=== PATIENT | male | born 1960 | race Caucasian/White ===

== ENCOUNTER 2018-10-19 11:58 | Inpatient (IN) ==
[2018-10-19] MEDS ORDERED: *HR* LORazepam 0.5 MG TABLET PO PRN (18:23)
[2018-10-19] MEDS ORDERED: Ondansetron ODT 4 MG TAB.RAPDIS PO PRN (18:23)
[2018-10-19] MEDS ORDERED: *HR* OxyCODONE/APAP 5/325 TABLET PO PRN ×2 (18:23→19:04)
[2018-10-20] MEDS: *HR* OxyCODONE/APAP 5/325 TABLET PO PRN ×4 (00:51→18:24)
[2018-10-20 07:12] LABS: Basophils % 0.3 %; Eosinophils # 0.4 K/mcL (0.0-0.6); Eosinophils % 3.5 %; Hematocrit 30.7 % (37.5-50.1); Hemoglobin 10.2 g/dL (12.9-16.9); Immature Granulocytes % 0.6 % (0-4); Lymphocytes % 7.9 %; Mean Corpuscular HGB Conc 33.2 g/dL (31.6-35.5); Mean Corpuscular Hemoglobin 28.7 pg (28.0-33.3); Mean Corpuscular Volume 86.5 fL (83.0-100.0); Mean Platelet Volume 10.3 fL (9.4-12.4); Monocytes # 1.1 K/mcL (0.0-1.3); Monocytes % 8.8 %; Neutrophils # 9.5 K/mcL (1.6-8.9); Platelet Count 211 K/mcL (140-400); Red Blood Count 3.55 M/mcL (4.19-5.50); Red Cell Distribution Width 13.3 % (11.5-14.5); Segmented Neutrophils % 78.9 %
[2018-10-20 07:30] LABS: INR 1.4
[2018-10-20 07:33] LABS: Activated Partial Thrombo Time 29.1 Seconds (26.0-36.0)
[2018-10-20 07:38] LABS: Alanine Aminotransferase 21 Units/L (7-52); Albumin 3.2 g/dL (3.5-5.7); Albumin/Globulin Ratio 1.1 (1.1-2.2); Alkaline Phosphatase 40 Units/L (34-104); Aspartate Amino Transferase 23 Units/L (13-39); BUN/Creatinine Ratio 22 (6-26); Bilirubin,Total 0.9 mg/dL (0.3-1.0); Blood Urea Nitrogen 22 mg/dL (8-23); Calcium 8.6 mg/dL (8.6-10.3); Carbon Dioxide 29 mEq/L (23-29); Chloride 98 mEq/L (98-107); Globulin 2.9 g/dL (2.4-3.5); Glucose 113 mg/dL (70-105); Magnesium 2.1 mg/dL (1.6-2.6); Osmolality,Calculated 278 (280-300); Potassium 3.8 mEq/L (3.5-5.1); Sodium 132 mEq/L (136-145); Total Protein 6.1 g/dL (6.4-8.9); eGFR For African Americans > 60 (> 60); eGFR For Non-African Americans > 60 (> 60)
[2018-10-20] MEDS: *HR* Rivaroxaban 10 MG TABLET PO SCH (08:36)
--- NOTE | 2018-10-20 10:42 | Internal Med History&Physical ---
Date of Encounter: 10/20/18 Time of Encounter: 10:40 Assessment and Plan (1) Status post total bilateral knee replacement Current visit: Yes Status: Acute PT and OT to eval and treat. Assist with ADLs as necessary. Continue Flexeril and Percocet for pain control and ice. Follow up with ortho as scheduled. (2) Rheumatoid arthritis Current visit: Yes Status: Acute Takes prednisone intermittently Qualifiers: Rheumatoid arthritis location: unspecified site Rheumatoid factor presence: unspecified presence Qualified Code(s): M06.9 - Rheumatoid arthritis, unspecified (3) Hypertension Current visit: Yes Status: Acute Controlled with current medication. Monitor blood pressure. Qualifiers: Hypertension type: essential hypertension Qualified Code(s): I10 - Essential (primary) hypertension Internal Medicine - H&P: HPI Admitted From: Hospital to Hospital Transfer Plans for Post Hospital Care: Home History of present illness: Mr. Vicente is a 58 year old male admitted to rehab unit status post bilateral total knee replacements. Surgery was performed [facility]. Surgery day was . Past medical history includes rheumatoid arthritis, osteoarthritis of both knees, hypertension. Patient was independent with ADLs prior to admission. Pain is controlled with Flexeril and Percocet. Applying ice to knees. Denies fever, chills, nausea vomiting or diarrhea. Denies shortness of breath or chest pain. Maintaining appetite and hydration. Transferred with mod assist with therapy. Past Med Surg Social Fam HX - Past Medical History Medical history: GERD, hyperlipidemia, hypertension, RA Psychiatric history: no psych history - Past Surgical History Additional surgical history: tiffani knee,back - Social History Smoking Status: Never smoker Smokeless Tobacco Status: No Alcohol use: none Drug use: none - Family History Father Adopted: No Living Status: Still Living Internal Medicine - H&P: Meds Aspirin [Lo-Dose Aspirin EC] 81 mg PO DAILY 09/21/16 [History] HYDROcodone/Acet 7.5/325 mg [[place] 7.5-325 mg] 1 tab PO Q6H PRN #15 tablet 09/21/16 [Rx] Ibuprofen [Motrin] 600 mg PO DAILY PRN 09/21/16 [History] LORazepam [Ativan] 0.5 mg PO HS PRN 09/21/16 [History] Losartan/Hydrochlorothiazide [Hyzaar 100-25 Tablet] 1 each PO DAILY 09/21/16 [History] Zolpidem [Ambien] 10 mg PO HS PRN 09/21/16 [History] Cyclobenzaprine 10 mg PO TID PRN 10/19/18 [History] Docusate [Colace] 10 mg PO BID 10/19/18 [History] Losartan 100 mg PO DAILY 10/19/18 [History] Percocet 5-325 mg Tablet 5 - 325 mg PO Q4HR PRN MDD 3 DAYS 10/19/18 [History] Rivaroxaban [Xarelto] 10 mg PO DAILY 10/19/18 [History] Tamsulosin [Flomax] 0.4 mg PO DAILY 10/19/18 [History] Zofran ODT 4 mg PO Q6HR PRN 10/19/18 [History] Allergy/AdvReac Type Severity Reaction Status Date / Time Penicillins Allergy Anaphylaxis Verified 09/21/16 08:07 All Systems PM: A 10-system review of systems was performed and is negative for pertinent findings except as documented above in the HPI. - Constitutional Constitutional: no chills, no fever(s), no night sweats - EENT Eyes: no change in vision, no discharge, no pain, no photophobia Ears: no ear discharge, no ear pain, no tinnitus Nose, mouth and throat: no dysphagia, no nasal discharge, no neck pain, no sore throat - Cardiovascular Cardiovascular ROS IM: no chest pain, no diaphoresis, no dyspnea, no lightheadedness, no palpitations, no syncope - Respiratory Respiratory: no cough, no dyspnea, no wheezing, no excessive phlegm production - Gastrointestinal Gastrointestinal: no abdominal pain, no diarrhea, no hematemesis, no hematochezia, no melena, no nausea, no vomiting - Musculoskeletal Musculoskeletal ROS IM: no numbness, no tingling - Integumentary Integumentary IM: no rash, no unusual bruising - Neurological Neurological ROS: no confusion, no convulsions, no focal weakness, no numbness, no tingling, no tremor(s) - Hematologic/Lymphatic Hematologic/Lymphatic: no easy bruising - Constitutional Vitals: Temp Pulse Resp BP Pulse Ox 97.8 F 107 18 124/72 94 10/20/18 07:13 10/20/18 07:13 10/20/18 07:13 10/20/18 07:13 10/20/18 07:13 General appearance: Present: cooperative, A&O X 3, morbidly obese, pleasant, answers questions appropriately - Head Head exam: Present: atraumatic, normocephalic - Eye Eye exam: Present: PERRL, conjuntiva pink, sclera anicteric Pupils: Present: PERRL - Neck Neck exam general surgery: Present: supple, trachea midline. Absent: lymphadenopathy - Respiratory Respiratory exam: Present: CTAB. Absent: accessory muscle use, rales, rhonchi, wheezes - Cardiovascular Cardiovascular exam: Present: RRR, +S1, +S2. Absent: diastolic murmur, gallop, rubs, systolic murmur - GI/Abdominal GI/Abdominal exam: Present: normal bowel sounds, soft, no peritoneal signs. Absent: distended, tenderness - Extremities Exam Extremities exam: Present: warm, radial pulses palpable and symmetrical. Absent: calf tenderness, cyanotic, pedal edema - Incison Comments: Bilateral knee incisions dressings dry and intact. Surrounding edema present. No sign of infection. - Neurological Exam Neurological exam: Present: CN II-XII intact, oriented X3, no focal deficits. Absent: pronater drift, facial droop, speech deficit - Skin Skin exam: Present: dry, intact Internal Med - H&P Results - Labs CBC & Chem 7: 10/20/18 06:51 10/20/18 06:51 Labs: Short CBC 10/20/18 Range/Units 06:51 WBC 12.0 H (4.3-11.1) K/mcL Hgb 10.2 L (12.9-16.9) g/dL Hct 30.7 L (37.5-50.1) % Plt Count 211 (140-400) K/mcL Neutrophils # 9.5 H (1.6-8.9) K/mcL BMP 10/20/18 06:51 Sodium 132 L Potassium 3.8 Chloride 98 Carbon Dioxide 29 BUN 22 Creatinine 0.98 Glucose 113 H Calcium 8.6 Liver Function 10/20/18 Range/Units 06:51 Total Bilirubin 0.9 (0.3-1.0) mg/dL AST 23 (13-39) Units/L ALT 21 (7-52) Units/L Alkaline Phosphatase 40 (34-104) Units/L Albumin 3.2 L (3.5-5.7) g/dL
[2018-10-20] MEDS: predniSONE 10 MG TABLET PO SCH (12:10)
[2018-10-21] MEDS: *HR* OxyCODONE/APAP 5/325 TABLET PO PRN ×5 (00:09→21:36)
[2018-10-21] MEDS: predniSONE 10 MG TABLET PO SCH (08:16)
[2018-10-21] MEDS: *HR* Rivaroxaban 10 MG TABLET PO SCH (08:16)
--- NOTE | 2018-10-21 10:31 | Internal Med Progress Note ---
Date of Encounter: 10/21/18 Time of Encounter: 10:27 - Assessment and plan (1) Status post total bilateral knee replacement Current Visit: Yes Status: Acute Assessment and plan: Patient surgical incision dressing to bilateral knees remained dry and intact. Moderate amount of edema to bilateral knees, but no ecchymosis or erythema noted. Patient states moderate pain to the knees which is tolerable with current medications. Patient states that he has limitations to his therapy due to his RA pain to his hips and back. Will evaluate patient's cortical steroids. We will continue with current pain medication and continue with physical therapy. (2) Rheumatoid arthritis Current Visit: Yes Status: Acute Assessment and plan: Patient with complaints of generalized discomforts which has limited his mobility during physical therapy. We will reevaluate patient's cortical steroids at this time. We will continue with current medications in place Qualifiers: Rheumatoid arthritis location: unspecified site Rheumatoid factor presence: unspecified presence Qualified Code(s): M06.9 - Rheumatoid arthritis, unspecified (3) Hypertension Current Visit: Yes Status: Acute Assessment and plan: Vital signs have been stable during her stay. We will continue with current medications. Qualifiers: Hypertension type: essential hypertension Qualified Code(s): I10 - Essential (primary) hypertension - Time Spent With Patient less than 15 minutes - Subjective Interval history: Patient appears relaxed at present, but states that he has had a moderate amount of generalized pain to include his bilateral knees. Patient states that his pain medication has been effective in decreasing the pain but that his generalized joint discomforts are related to his rheumatoid arthritis. Patient denies any other issues. States that therapy has been progressing well except for limitations from his pain - Constitutional Vitals: Temp Pulse Resp BP Pulse Ox 98.9 F 102 14 112/67 93 10/20/18 19:59 10/20/18 22:46 10/20/18 19:59 10/20/18 22:46 10/20/18 19:59 General appearance: Present: cooperative, A&O X 3, morbidly obese, pleasant, answers questions appropriately - Head Head exam: Present: atraumatic, normocephalic - Eye Eye exam: Present: PERRL, conjuntiva pink, sclera anicteric Pupils: Present: PERRL - Neck Neck exam general surgery: Present: supple, trachea midline. Absent: lymphadenopathy - Respiratory Respiratory exam: Present: decreased breath sounds, CTAB. Absent: accessory muscle use, rales, rhonchi, wheezes - Cardiovascular Cardiovascular exam: Present: RRR, +S1, +S2. Absent: diastolic murmur, gallop, rubs, systolic murmur - GI/Abdominal GI/Abdominal exam: Present: normal bowel sounds, soft, no peritoneal signs. Absent: distended, tenderness - Extremities Exam Extremities exam: Present: warm, radial pulses palpable and symmetrical. Absent: calf tenderness, cyanotic, pedal edema Additional comments: Patient with midline surgical dressings to bilateral knees which appear dry and intact. Bilateral knees with slight edema, but no ecchymosis. Patient using continuous icing while in bed - Neurological Exam Neurological exam: Present: CN II-XII intact, oriented X3, no focal deficits. Absent: pronater drift, facial droop, speech deficit - Skin Skin exam: Present: dry, intact Internal Medicine: Result - Labs CBC & Chem 7: 10/20/18 06:51 10/20/18 06:51 - ABG Interpretation ABG results: PT/INR, D-dimer PT 16.0 Seconds (9.4-12.1) H 10/20/18 06:51 Consult Discharge Plan - Plan Referrals: Guillermina Mazariegos BUILDING MAINTENANCE TECHNICIAN [Primary Care Provider] - (Post-op f/u appt with Elgin Mota MD on Nov 09 at 11:00. )
[2018-10-21] MEDS: PrednisoLONE Oral Soln 15 MG/5 ML UDC PO SCH (12:16)
[2018-10-22] MEDS: *HR* OxyCODONE/APAP 5/325 TABLET PO PRN ×4 (06:11→20:32)
[2018-10-22] MEDS: *HR* Rivaroxaban 10 MG TABLET PO SCH (08:21)
[2018-10-22] MEDS: PrednisoLONE Oral Soln 15 MG/5 ML UDC PO SCH (08:21)
[2018-10-22] MEDS ORDERED: hydrALAZINE 10 MG TABLET PO PRN (13:09)
--- NOTE | 2018-10-22 13:20 | Internal Med Progress Note ---
Date of Encounter: 10/23/18 Time of Encounter: 13:50 - Subjective Interval history: - Assessment and plan (1) Status post total bilateral knee replacement Current Visit: Yes Status: Acute Assessment and plan: Patient surgical incision dressing to bilateral knees remained dry and intact. He is anxious as he notes he has had mrsa in past. He is afebrile and he has no change in post op areas. PT requesting antibiotics for prevention. Advised pt that is usually done around time of surgery but not in his rehab recovery phase. Pt assured we will monitor his clinical status. Patient states he is not happy he still has pain to the knees . He says when he did pt he noted he did a lot yesterday and now has more pain. Patient states that he has limitations to his therapy due to his RA pain to his hips and back. Will evaluate patient's cortical steroids. We will continue with current pain medication and continue with physical therapy. Pt wants more narcotic. Advised will not be in best interest at this time. Discussed option. Pt elects to add Toradol q 8 hr for 3 days. He has good renal function and has controlled htn. (2) Rheumatoid arthritis Current Visit: Yes Status: Acute Assessment and plan: Patient with complaints of generalized discomforts which has limited his mobility during physical therapy. He says he has had RA for years. He says he did not tolerate disease modifying agents except says he did ok on plaquinil He says not on it at home due to cost. He would like to use it here. Will start. Qualifiers: Rheumatoid arthritis location: unspecified site Rheumatoid factor presence: unspecified presence Qualified Code(s): M06.9 - Rheumatoid arthritis, unspecified (3) Hypertension Current Visit: Yes Status: Acute Assessment and plan: Vital signs have been stable but he says in past he allergic to lisinopril he has some systolic htn still and tachycardia. Will DC losartin and start bystolic 10 mg. Pt in agreement with plan. No cp or palpitation. Qualifiers: Hypertension type: essential hypertension Qualified Code(s): I10 - Essential (primary) hypertension (4) Anemia Pt is on anticoagulant. He is not having bleeding. He has stable Hb that is mildly low. He does have some hx of vitamin deficiencies he says. Will check iron group and B12 levels. Will follow cbc. continue to monitor . - Time Spent With Patient less than 15 minutes - Subjective Interval history: Patient appears anxious and says he has severe pain today in both knees after doing lot PT yesterday. He is upset over that. He is also not sleeping well. He says at home he uses ambien and tries not to use it every night as he has been on long time. Discussed. Agrees to stop for now and try trazodone at hs. Patient denies any other issues. States that therapy has been progressing well except for limitations from his pain - EXAM General appearance: Present: White Male cooperative, A&O X 3, morbidly central obese, answers questions appropriately - Head Head exam: Present: atraumatic, normocephalic - Eye Eye exam: Present: PERRL, conjuntiva pink, sclera anicteric Pupils: Present: PERRL - Neck Neck exam general surgery: Present: supple, trachea midline. Absent: lymphadenopathy - Respiratory Respiratory exam: Present: decreased breath sounds, CTAB. Absent: accessory muscle use, rales, rhonchi, wheezes - Cardiovascular Cardiovascular exam: Present: RRR, +S1, +S2. Absent: diastolic murmur, gallop, rubs, systolic murmur - GI/Abdominal GI/Abdominal exam: Present: normal bowel sounds, soft, no peritoneal signs. Absent: distended, tenderness - Extremities Exam Extremities exam: Present: warm, radial pulses palpable and symmetrical. A bsent: calf tenderness, cyanotic, pedal edema Additional comments: Patient with midline surgical dressings to bilateral knees which appear dry and intact. Bilateral knees with slight edema, but no ecchymosis. Patient using continuous icing while in bed - Neurological Exam Neurological exam: Present: CN II-XII intact, oriented X3, no focal deficits. Absent: pronater drift, facial droop, speech deficit - Skin Skin exam: Present: dry, intact - Constitutional Vitals: Temp Pulse Resp BP Pulse Ox 97.9 F 91 15 138/78 93 10/22/18 08:00 10/22/18 08:00 10/22/18 08:00 10/22/18 08:00 10/22/18 08:00 General appearance: Present: cooperative, A&O X 3, morbidly obese, pleasant, answers questions appropriately Internal Medicine: Result - Labs CBC & Chem 7: 10/23/18 05:20 10/23/18 05:20 - ABG Interpretation ABG results: PT/INR, D-dimer PT 16.0 Seconds (9.4-12.1) H 10/20/18 06:51 Consult Discharge Plan - Plan Referrals: Guillermina Mazariegos, PUBLIC HEALTH INSPECTOR [Primary Care Provider] - (Post-op f/u appt with Elgin Mota MD on Nov 09 at 11:00. )
[2018-10-22] MEDS: Saline Nasal Spray 44 ML BOTTLE NS SCH ×2 (14:14→20:45)
[2018-10-22] MEDS: Ketorolac 30 MG/ML VIAL IM SCH ×2 (14:15→22:48)
[2018-10-22 16:00] LABS: Thyroid Stimulating Hormone 0.756 mcIU/mL (0.340-5.600)
[2018-10-22 19:15] LABS: Estimated Average Glucose 114 mg/dl
[2018-10-22] MEDS: traZODone 50 MG TABLET PO SCH (20:45)
[2018-10-22] MEDS: Ascorbic Acid 500 MG TABLET PO SCH (20:45)
[2018-10-22] MEDS: Melatonin 3 MG TABLET PO SCH (20:46)
[2018-10-22] MEDS: Lactobacillus 1 EACH CAP.SPRINK PO SCH (20:46)
[2018-10-23] MEDS: *HR* OxyCODONE/APAP 5/325 TABLET PO PRN ×5 (05:06→22:28)
[2018-10-23] MEDS: Ketorolac 30 MG/ML VIAL IM SCH ×3 (05:07→22:28)
[2018-10-23] MEDS: *HR* LORazepam 0.5 MG TABLET PO PRN (05:07)
[2018-10-23] MEDS: Saline Nasal Spray 44 ML BOTTLE NS SCH ×3 (05:16→23:25)
[2018-10-23 06:06] LABS: Hematocrit 29.4 % (37.5-50.1); Hemoglobin 9.4 g/dL (12.9-16.9); Mean Corpuscular Hemoglobin 28.7 pg (28.0-33.3); Mean Corpuscular Volume 89.6 fL (83.0-100.0); Mean Platelet Volume 9.7 fL (9.4-12.4); Platelet Count 285 K/mcL (140-400); Red Blood Count 3.28 M/mcL (4.19-5.50); Red Cell Distribution Width 13.9 % (11.5-14.5); White Blood Count 9.4 K/mcL (4.3-11.1)
[2018-10-23 06:26] LABS: Alanine Aminotransferase 48 Units/L (7-52); Albumin 3.1 g/dL (3.5-5.7); Albumin/Globulin Ratio 1.1 (1.1-2.2); Alkaline Phosphatase 40 Units/L (34-104); Aspartate Amino Transferase 39 Units/L (13-39); BUN/Creatinine Ratio 28 (6-26); Blood Urea Nitrogen 28 mg/dL (8-23); Calcium 8.9 mg/dL (8.6-10.3); Carbon Dioxide 32 mEq/L (23-29); Chloride 102 mEq/L (98-107); Globulin 2.9 g/dL (2.4-3.5); Glucose 93 mg/dL (70-105); Osmolality,Calculated 289 (280-300); Potassium 3.6 mEq/L (3.5-5.1); Sodium 137 mEq/L (136-145); eGFR For African Americans > 60 (> 60); eGFR For Non-African Americans > 60 (> 60)
[2018-10-23] MEDS: *HR* Rivaroxaban 10 MG TABLET PO SCH (08:36)
[2018-10-23] MEDS: PrednisoLONE Oral Soln 15 MG/5 ML UDC PO SCH (08:36)
[2018-10-23] MEDS: Ascorbic Acid 500 MG TABLET PO SCH ×2 (08:53→23:25)
[2018-10-23] MEDS: Lactobacillus 1 EACH CAP.SPRINK PO SCH ×2 (08:53→23:25)
--- NOTE | 2018-10-23 16:08 | Internal Med Progress Note ---
Date of Encounter: 10/23/18 Time of Encounter: 15:10 - Subjective Interval history: - Assessment and plan (1) Status post total bilateral knee replacement Current Visit: Yes Status: Acute Assessment and plan: Patient surgical incision dressing to bilateral knees remained dry and intact. He is anxious as he notes he has had mrsa in past. He is afebrile and he has no change in post op areas. PT requesting antibiotics for prevention. Advised pt that is usually done around time of surgery but not in his rehab recovery phase. Pt assured we will monitor his clinical status. Patient states he is not happy he still has pain to the knees . He says when he did pt he noted he did a lot yesterday and now has more pain. Patient states that he has limitations to his therapy due to his RA pain to his hips and back. Will evaluate patient's cortical steroids. We will continue with current pain medication and continue with physical therapy. Pt wants more narcotic. Advised will not be in best interest at this time. Discussed option. Pt elects to add Toradol q 8 hr for 3 days. Sates some relief and feels helpful. (2) Rheumatoid arthritis Current Visit: Yes Status: Acute Assessment and plan: Patient with complaints of generalized discomforts which has limited his mobility during physical therapy. He says he has had RA for years. He says he did not tolerate disease modifying agents except says he did ok on plaquinil He says not on it at home due to cost. He would like to use it here. Will start. Qualifiers: Rheumatoid arthritis location: unspecified site Rheumatoid factor presence: unspecified presence Qualified Code(s): M06.9 - Rheumatoid arthritis, unspecified (3) Hypertension Current Visit: Yes Status: Acute Assessment and plan: Vital signs have been stable but he says in past he allergic to lisinopril he has some systolic htn still and tachycardia. Will DC losartin and start bystolic 10 mg. Pt in agreement with plan. No cp or palpitation. Qualifiers: Hypertension type: essential hypertension Qualified Code(s): I10 - Essential (primary) hypertension (4) Anemia Pt is on anticoagulant. He is not having bleeding. He has stable Hb that is mildly low. He does have some hx of vitamin deficiencies he says. Will check iron group and B12 levels. Will follow cbc. B12 low so will add po b12 Iron pending. continue to monitor . - Time Spent With Patient less than 15 minutes - Subjective Interval history: Patient appears anxious and says he has severe pain today in both knees after doing lot PT on wednesday. He notes adding Toradol helpful. He is also not sleeping well. He says at home he uses ambien and tries not to use it every night as he has been on long time. Discussed. Agrees to stop for now and try trazodone at hs. Patient denies any other issues. States that therapy has been progressing well except for limitations from his pain - EXAM General appearance: Present: White Male cooperative, A&O X 3, morbidly central obese, answers questions appropriately - Head Head exam: Present: atraumatic, normocephalic - Eye Eye exam: Present: PERRL, conjuntiva pink, sclera anicteric Pupils: Present: PERRL - Neck Neck exam general surgery: Present: supple, trachea midline. Absent: lymphadenopathy - Respiratory Respiratory exam: Present: decreased breath sounds, CTAB. Absent: accessory muscle use, rales, rhonchi, wheezes - Cardiovascular Cardiovascular exam: Present: RRR, +S1, +S2. Absent: diastolic murmur, gallop, rubs, systolic murmur - GI/Abdominal GI/Abdominal exam: Present: normal bowel sounds, soft, no peritoneal signs. Absent: distended, tenderness - Extremities Exam Extremities exam: Present: warm, radial pulses palpable and symmetrical. Absent: calf tenderness, cyanotic, pedal edema Additional comments: Patient with midline surgical dressings to bilateral knees which appear dry and intact. Bilateral knees with slight edema, but no ecchymosis. Patient using continuous icing while in bed - Neurological Exam Neurological exam: Present: CN II-XII intact, oriented X3, no focal deficits. Absent: pronater drift, facial droop, speech deficit - Skin Skin exam: Present: dry, intact - Constitutional Vitals: Temp Pulse Resp BP Pulse Ox 97.8 F 86 15 140/80 95 10/23/18 08:40 10/23/18 08:40 10/23/18 08:40 10/23/18 08:40 10/23/18 08:40 General appearance: Present: cooperative, A&O X 3, morbidly obese, pleasant, answers questions appropriately Internal Medicine: Result - Labs CBC & Chem 7: 10/23/18 05:20 10/23/18 05:20 Labs: Short CBC 10/23/18 Range/Units 05:20 WBC 9.4 (4.3-11.1) K/mcL Hgb 9.4 L (12.9-16.9) g/dL Hct 29.4 L (37.5-50.1) % Plt Count 285 (140-400) K/mcL BMP 10/23/18 05:20 Sodium 137 Potassium 3.6 Chloride 102 Carbon Dioxide 32 H BUN 28 H Creatinine 1.00 Glucose 93 Calcium 8.9 Liver Function 10/23/18 Range/Units 05:20 Total Bilirubin 1.0 (0.3-1.0) mg/dL AST 39 (13-39) Units/L ALT 48 (7-52) Units/L Alkaline Phosphatase 40 (34-104) Units/L Albumin 3.1 L (3.5-5.7) g/dL - ABG Interpretation ABG results: PT/INR, D-dimer PT 16.0 Seconds (9.4-12.1) H 10/20/18 06:51 Consult Discharge Plan - Plan Referrals: Guillermina Mazariegos, PRECISION INSPECTOR [Primary Care Provider] - (Post-op f/u appt with Elgin Mota MD on Nov 09 at 11:00. )
[2018-10-23] MEDS ORDERED: Mag Hydrox/Al Hydrox/Simeth 30 ML UDC PO PRN (22:50)
[2018-10-23] MEDS: Melatonin 3 MG TABLET PO SCH (23:25)
[2018-10-23] MEDS: traZODone 50 MG TABLET PO SCH (23:25)
[2018-10-24] MEDS: *HR* LORazepam 0.5 MG TABLET PO PRN (04:14)
[2018-10-24] MEDS: *HR* OxyCODONE/APAP 5/325 TABLET PO PRN ×5 (04:14→22:28)
[2018-10-24] MEDS: Saline Nasal Spray 44 ML BOTTLE NS SCH ×3 (04:20→22:28)
[2018-10-24] MEDS: Ketorolac 30 MG/ML VIAL IM SCH ×3 (05:30→22:27)
[2018-10-24 06:01] LABS: Hemoglobin 9.2 g/dL (12.9-16.9); Mean Corpuscular HGB Conc 31.7 g/dL (31.6-35.5); Mean Corpuscular Hemoglobin 28.3 pg (28.0-33.3); Mean Corpuscular Volume 89.2 fL (83.0-100.0); Mean Platelet Volume 9.3 fL (9.4-12.4); Platelet Count 303 K/mcL (140-400); Red Blood Count 3.25 M/mcL (4.19-5.50); Red Cell Distribution Width 13.8 % (11.5-14.5); White Blood Count 11.1 K/mcL (4.3-11.1)
[2018-10-24 06:14] LABS: Alanine Aminotransferase 48 Units/L (7-52); Albumin/Globulin Ratio 1.1 (1.1-2.2); Alkaline Phosphatase 46 Units/L (34-104); Aspartate Amino Transferase 33 Units/L (13-39); BUN/Creatinine Ratio 31 (6-26); Bilirubin,Total 0.9 mg/dL (0.3-1.0); Blood Urea Nitrogen 29 mg/dL (8-23); Calcium 8.8 mg/dL (8.6-10.3); Carbon Dioxide 32 mEq/L (23-29); Chloride 102 mEq/L (98-107); Globulin 2.7 g/dL (2.4-3.5); Glucose 102 mg/dL (70-105); Osmolality,Calculated 292 (280-300); Potassium 4.2 mEq/L (3.5-5.1); Sodium 138 mEq/L (136-145); Total Protein 5.7 g/dL (6.4-8.9); eGFR For African Americans > 60 (> 60); eGFR For Non-African Americans > 60 (> 60)
[2018-10-24] MEDS: PrednisoLONE Oral Soln 15 MG/5 ML UDC PO SCH (08:11)
[2018-10-24] MEDS: *HR* Rivaroxaban 10 MG TABLET PO SCH (08:12)
[2018-10-24] MEDS: Lactobacillus 1 EACH CAP.SPRINK PO SCH (08:14)
[2018-10-24] MEDS: Ascorbic Acid 500 MG TABLET PO SCH (08:14)
[2018-10-24] MEDS ORDERED: Cyanocobalamin (B-12) 1,000 MCG TABLET PO SCH (09:00)
[2018-10-24] MEDS ORDERED: Ketorolac 30 MG/ML VIAL IM ONE (14:00)
--- NOTE | 2018-10-24 14:16 | Internal Med Progress Note ---
Date of Encounter: 10/24/18 Time of Encounter: 14:14 - Assessment and plan (1) Status post total bilateral knee replacement Current Visit: Yes Status: Acute Assessment and plan: Patient surgical incision dressing to bilateral knees remained dry and intact. Moderate amount of edema to bilateral knees, but no ecchymosis or erythema noted. Patient states moderate pain to the knees which is tolerable with current medications. Patient states that his pain is better controlled now that he has started on Toradol. Will continue patient's cortical steroids and scheduled Toradol. We will continue with current pain medication and continue with physical therapy. (2) Rheumatoid arthritis Current Visit: Yes Status: Acute Assessment and plan: Patient with complaints of generalized discomforts which has limited his mobility during physical therapy. We will reevaluate patient's cortical steroids at this time. We will continue with current medications in place Qualifiers: Rheumatoid arthritis location: unspecified site Rheumatoid factor presence: unspecified presence Qualified Code(s): M06.9 - Rheumatoid arthritis, unspecified (3) Hypertension Current Visit: Yes Status: Acute Assessment and plan: Vital signs have been stable during her stay. We will continue with current medications. Qualifiers: Hypertension type: essential hypertension Qualified Code(s): I10 - Essential (primary) hypertension - Time Spent With Patient less than 15 minutes - Subjective Interval history: Patient appears relaxed at present, but states that he has had a moderate amount of generalized pain to include his bilateral knees. Patient states that his pain medication has been effective in decreasing the pain but that his generalized joint discomforts are related to his rheumatoid arthritis. Patient states that his pain has been better controlled since starting on scheduled Toradol - Constitutional Vitals: Temp Pulse Resp BP Pulse Ox 97.6 F 86 18 145/81 96 10/24/18 07:09 10/24/18 07:09 10/24/18 07:09 10/24/18 07:09 10/24/18 07:09 General appearance: Present: cooperative, A&O X 3, morbidly obese, pleasant, answers questions appropriately - Head Head exam: Present: atraumatic, normocephalic - Eye Eye exam: Present: PERRL, conjuntiva pink, sclera anicteric Pupils: Present: PERRL - Neck Neck exam general surgery: Present: supple, trachea midline. Absent: lymphadenopathy - Respiratory Respiratory exam: Present: CTAB. Absent: accessory muscle use, rales, rhonchi, wheezes - Cardiovascular Cardiovascular exam: Present: RRR, +S1, +S2. Absent: diastolic murmur, gallop, rubs, systolic murmur - GI/Abdominal GI/Abdominal exam: Present: normal bowel sounds, soft, no peritoneal signs. Absent: distended, tenderness - Extremities Exam Extremities exam: Present: pedal edema, warm, radial pulses palpable and symmetrical. Absent: calf tenderness, cyanotic Additional comments: Patient with midline surgical incisions covered with dressings that are dry and intact to bilateral knees. Minimal amount of ecchymosis noted surrounding right knee. Bilateral knees appears slightly swollen. Patient with nonpitting edema to bilateral ankles. - Neurological Exam Neurological exam: Present: CN II-XII intact, oriented X3, no focal deficits. Absent: pronater drift, facial droop, speech deficit - Skin Skin exam: Present: dry, intact Internal Medicine: Result - Labs CBC & Chem 7: 10/24/18 05:45 10/24/18 05:45 Labs: Short CBC 10/24/18 Range/Units 05:45 WBC 11.1 (4.3-11.1) K/mcL Hgb 9.2 L (12.9-16.9) g/dL Hct 29.0 L (37.5-50.1) % Plt Count 303 (140-400) K/mcL BMP 10/24/18 05:45 Sodium 138 Potassium 4.2 Chloride 102 Carbon Dioxide 32 H BUN 29 H Creatinine 0.95 Glucose 102 Calcium 8.8 Liver Function 10/24/18 Range/Units 05:45 Total Bilirubin 0.9 (0.3-1.0) mg/dL AST 33 (13-39) Units/L ALT 48 (7-52) Units/L Alkaline Phosphatase 46 (34-104) Units/L Albumin 3.0 L (3.5-5.7) g/dL - ABG Interpretation ABG results: PT/INR, D-dimer PT 16.0 Seconds (9.4-12.1) H 10/20/18 06:51 Consult Discharge Plan - Plan Referrals: Guillermina Mazariegos, SENIOR JAVA PROGRAMMER [Primary Care Provider] - (Post-op f/u appt with Elgin Mota MD on Nov 09 at 11:00. )
[2018-10-24] MEDS: traZODone 50 MG TABLET PO SCH (22:26)
[2018-10-24] MEDS: Melatonin 3 MG TABLET PO SCH (22:26)
[2018-10-25] MEDS: *HR* OxyCODONE/APAP 5/325 TABLET PO PRN ×5 (05:34→22:56)
[2018-10-25] MEDS: Ketorolac 30 MG/ML VIAL IM SCH ×3 (05:37→22:57)
[2018-10-25] MEDS: Saline Nasal Spray 44 ML BOTTLE NS SCH ×3 (05:48→22:58)
[2018-10-25 06:22] LABS: Hematocrit 29.2 % (37.5-50.1); Hemoglobin 9.4 g/dL (12.9-16.9); Mean Corpuscular HGB Conc 32.2 g/dL (31.6-35.5); Mean Corpuscular Hemoglobin 28.3 pg (28.0-33.3); Mean Platelet Volume 8.9 fL (9.4-12.4); Platelet Count 302 K/mcL (140-400); Red Blood Count 3.32 M/mcL (4.19-5.50); Red Cell Distribution Width 13.8 % (11.5-14.5); White Blood Count 10.6 K/mcL (4.3-11.1)
[2018-10-25 06:43] LABS: Alanine Aminotransferase 46 Units/L (7-52); Albumin/Globulin Ratio 1.1 (1.1-2.2); Alkaline Phosphatase 46 Units/L (34-104); Aspartate Amino Transferase 28 Units/L (13-39); BUN/Creatinine Ratio 28 (6-26); Blood Urea Nitrogen 25 mg/dL (8-23); Calcium 8.4 mg/dL (8.6-10.3); Carbon Dioxide 30 mEq/L (23-29); Chloride 102 mEq/L (98-107); Globulin 2.7 g/dL (2.4-3.5); Glucose 98 mg/dL (70-105); Osmolality,Calculated 286 (280-300); Sodium 136 mEq/L (136-145); Total Protein 5.7 g/dL (6.4-8.9); eGFR For African Americans > 60 (> 60); eGFR For Non-African Americans > 60 (> 60)
[2018-10-25] MEDS: PrednisoLONE Oral Soln 15 MG/5 ML UDC PO SCH (08:08)
[2018-10-25] MEDS: *HR* Rivaroxaban 10 MG TABLET PO SCH (08:08)
--- NOTE | 2018-10-25 09:59 | Internal Med Progress Note ---
Date of Encounter: 10/25/18 Time of Encounter: 09:57 - Assessment and plan (1) Status post total bilateral knee replacement Current Visit: Yes Status: Acute Assessment and plan: Continue PT and OT. Will follow progress. Follow up with ortho as scheduled. (2) Rheumatoid arthritis Current Visit: Yes Status: Acute Assessment and plan: Stable. Continue current medication. Qualifiers: Rheumatoid arthritis location: unspecified site Rheumatoid factor presence: unspecified presence Qualified Code(s): M06.9 - Rheumatoid arthritis, unspecified (3) Hypertension Current Visit: Yes Status: Acute Assessment and plan: Controlled with current medication. Monitor blood pressure. Qualifiers: Hypertension type: essential hypertension Qualified Code(s): I10 - Essential (primary) hypertension - Time Spent With Patient less than 15 minutes - Subjective Interval history: Participating well with therapy. Pain controlled with current medication. States last bowel movement was yesterday. Maintaining appetite and hydration. Denies fever, chills, nausea vomiting or diarrhea. Denies shortness of breath or chest pain. Plan is to discharge to home with . - Constitutional Vitals: Temp Pulse Resp BP Pulse Ox 97.6 F 84 15 136/78 94 10/25/18 07:53 10/25/18 07:53 10/25/18 07:53 10/25/18 07:53 10/25/18 07:53 General appearance: Present: cooperative, A&O X 3, morbidly obese, pleasant, answers questions appropriately - Head Head exam: Present: atraumatic, normocephalic - Eye Eye exam: Present: PERRL, conjuntiva pink, sclera anicteric Pupils: Present: PERRL - Neck Neck exam general surgery: Present: supple, trachea midline. Absent: lymphadenopathy - Respiratory Respiratory exam: Present: CTAB. Absent: accessory muscle use, rales, rhonchi, wheezes - Cardiovascular Cardiovascular exam: Present: RRR, +S1, +S2. Absent: diastolic murmur, gallop, rubs, systolic murmur - GI/Abdominal GI/Abdominal exam: Present: normal bowel sounds, soft, no peritoneal signs. Absent: distended, tenderness - Extremities Exam Extremities exam: Present: warm, radial pulses palpable and symmetrical. Absent: calf tenderness, cyanotic, pedal edema Additional comments: Moderate amount of edema surrounding bilateral knee incisions. - Incison Comments: bilat knees, incisions well approximated, no drainage or signs of infection. - Neurological Exam Neurological exam: Present: CN II-XII intact, oriented X3, no focal deficits. Absent: pronater drift, facial droop, speech deficit - Skin Skin exam: Present: dry, intact Internal Medicine: Result - Labs CBC & Chem 7: 10/25/18 06:05 10/25/18 06:05 Labs: Short CBC 10/25/18 Range/Units 06:05 WBC 10.6 (4.3-11.1) K/mcL Hgb 9.4 L (12.9-16.9) g/dL Hct 29.2 L (37.5-50.1) % Plt Count 302 (140-400) K/mcL BMP 10/25/18 06:05 Sodium 136 Potassium 4.0 Chloride 102 Carbon Dioxide 30 H BUN 25 H Creatinine 0.90 Glucose 98 Calcium 8.4 L Liver Function 10/25/18 Range/Units 06:05 Total Bilirubin 1.0 (0.3-1.0) mg/dL AST 28 (13-39) Units/L ALT 46 (7-52) Units/L Alkaline Phosphatase 46 (34-104) Units/L Albumin 3.0 L (3.5-5.7) g/dL - ABG Interpretation ABG results: PT/INR, D-dimer PT 16.0 Seconds (9.4-12.1) H 10/20/18 06:51 Consult Discharge Plan - Plan Referrals: Guillermina Mazariegos, [employer] C[employer]US TAKER [Primary Care Provider] - (Post-op f/u appt with Elgin Mota MD on Nov 09 at 11:00. )
[2018-10-25] MEDS: *HR* LORazepam 0.5 MG TABLET PO PRN (12:41)
[2018-10-25] MEDS: traZODone 50 MG TABLET PO SCH (22:57)
[2018-10-25] MEDS: Melatonin 3 MG TABLET PO SCH (22:57)
[2018-10-26] MEDS: *HR* LORazepam 0.5 MG TABLET PO PRN (04:20)
[2018-10-26] MEDS: *HR* OxyCODONE/APAP 5/325 TABLET PO PRN ×5 (04:20→22:44)
[2018-10-26] MEDS: Saline Nasal Spray 44 ML BOTTLE NS SCH ×3 (04:23→22:47)
[2018-10-26] MEDS: Ketorolac 30 MG/ML VIAL IM SCH ×3 (06:53→22:47)
[2018-10-26] MEDS: *HR* Rivaroxaban 10 MG TABLET PO SCH (08:16)
--- NOTE | 2018-10-26 12:38 | Internal Med Progress Note ---
Date of Encounter: 10/26/18 Time of Encounter: 12:36 - Assessment and plan (1) Status post total bilateral knee replacement Current Visit: Yes Status: Acute Assessment and plan: Patient surgical incision dressing to bilateral knees remained dry and intact. Moderate amount of edema to bilateral knees, but no ecchymosis or erythema noted. Patient states moderate pain to the knees which is tolerable with current medications. Patient states that his pain is better controlled now that he has started on Toradol. Will continue patient's cortical steroids and scheduled Toradol. We will continue with current pain medication and continue with physical therapy. (2) Rheumatoid arthritis Current Visit: Yes Status: Acute Assessment and plan: Patient with complaints of generalized discomforts which has limited his mobility during physical therapy. We will continue with patient's cortical steroids at this time. Qualifiers: Rheumatoid arthritis location: unspecified site Rheumatoid factor presence: unspecified presence Qualified Code(s): M06.9 - Rheumatoid arthritis, unspecified (3) Hypertension Current Visit: Yes Status: Acute Assessment and plan: Vital signs have been stable during his stay. We will continue with current medications. Qualifiers: Hypertension type: essential hypertension Qualified Code(s): I10 - Essential (primary) hypertension - Time Spent With Patient less than 15 minutes - Subjective Interval history: Patient appears relaxed at present, but states that he has had a moderate amount of generalized pain to include his bilateral knees. Patient states that his pain medication has been effective in decreasing the pain but that his generalized joint discomforts are related to his rheumatoid arthritis, but states that he feels his rheumatoid arthritis is improving pain. Patient states that his pain has been better controlled since starting on scheduled Toradol - Constitutional Vitals: Temp Pulse Resp BP Pulse Ox 97.8 F 83 18 120/75 95 10/26/18 07:14 10/26/18 07:14 10/26/18 07:14 10/26/18 07:14 10/26/18 08:20 General appearance: Present: cooperative, A&O X 3, morbidly obese, pleasant, answers questions appropriately - Head Head exam: Present: atraumatic, normocephalic - Eye Eye exam: Present: PERRL, conjuntiva pink, sclera anicteric Pupils: Present: PERRL - Neck Neck exam general surgery: Present: supple, trachea midline. Absent: lymphadenopathy - Respiratory Respiratory exam: Present: CTAB. Absent: accessory muscle use, rales, rhonchi, wheezes - Cardiovascular Cardiovascular exam: Present: RRR, +S1, +S2. Absent: diastolic murmur, gallop, rubs, systolic murmur - GI/Abdominal GI/Abdominal exam: Present: normal bowel sounds, soft, no peritoneal signs. Absent: distended, tenderness - Extremities Exam Extremities exam: Present: warm, radial pulses palpable and symmetrical. Absen t: calf tenderness, cyanotic, pedal edema Additional comments: Patient with midline surgical incisions to bilateral knees with dressings that both remained dry and intact. Noted small amount of ecchymosis to right knee. Bilateral knees and lower legs with nonpitting edema. - Neurological Exam Neurological exam: Present: CN II-XII intact, oriented X3, no focal deficits. Absent: pronater drift, facial droop, speech deficit - Skin Skin exam: Present: dry, intact Internal Medicine: Result - Labs CBC & Chem 7: 10/25/18 06:05 10/25/18 06:05 - ABG Interpretation ABG results: PT/INR, D-dimer PT 16.0 Seconds (9.4-12.1) H 10/20/18 06:51 Consult Discharge Plan - Plan Referrals: Guillermina Mazariegos, IND[employer] SERVICE HELPER [Primary Care Provider] - (Post-op f/u appt with Elgin Mota MD on Nov 09 at 11:00. )
[2018-10-26] MEDS: Melatonin 3 MG TABLET PO SCH (22:43)
[2018-10-26] MEDS: traZODone 50 MG TABLET PO SCH (22:45)
[2018-10-27] MEDS: Saline Nasal Spray 44 ML BOTTLE NS SCH (01:50)
[2018-10-27] MEDS: *HR* OxyCODONE/APAP 5/325 TABLET PO PRN ×3 (04:09→14:33)
[2018-10-27 07:46] VITALS: BP 130/75
[2018-10-27] MEDS: *HR* Rivaroxaban 10 MG TABLET PO SCH (07:52)
[2018-10-27] MEDS ORDERED: traMADol 50 MG TABLET PO PRN (08:00)
--- NOTE | 2018-10-27 10:07 | Discharge Summary ---
Date of Encounter: 10/27/18 Time of Encounter: 10:04 - Discharge Diagnosis (1) Status post total bilateral knee replacement Priority: Primary Status: Acute Comments: Patient was admitted to this facility after bilateral knee replacement for therapy. Patient dissipated and therapy and progressed well. Patient continues to have moderate amount of surgical pain and also has had an exacerbation of his rheumatoid pain during his stay. Patient currently has had his medications titrated and states that his pain is tolerable upon day of discharge. Bilateral knees with midline incision and dressings that appear healthy, dry and intact. Patient continues to have a moderate amount of edema to bilateral lower extremities distal to his surgical site. Patient is recommended to follow up with his family physician within one week of discharge. Patient is being discharged with a prescription for Naprosyn and will with [place]. Patient states that he takes [place] at home and prefers it over his current Percocet. Patient is to continue follow-up with orthopedic surgeon (2) Rheumatoid arthritis Priority: Secondary Status: Acute Comments: Patient with long history of rheumatoid arthritis and has had an exacerbation of his pain during his stay of facility. Patient continues on his cortical steroids and has been taking when necessary NSAIDs with good relief. Patient will be discharged with his current medications as a follow-up with his primary care physician within one week. Qualifiers: Rheumatoid arthritis location: unspecified site Rheumatoid factor presence: unspecified presence Qualified Code(s): M06.9 - Rheumatoid arthritis, unsp ecified (3) Hypertension Priority: Secondary Status: Acute Comments: No acute issues during stay of facility. Patient will be discharged home with current medications and follow-up with PCP Qualifiers: Hypertension type: essential hypertension Qualified Code(s): I10 - Essential (primary) hypertension Hospital course: Mr. Vicente is a 58 year old male, who was admitted to rehab unit status post bilateral total knee replacements. [facility] Surgery day was . Recovery at the [facility] was uneventful. Past medical history includes rheumatoid arthritis, osteoarthritis of both knees, hypertension. Patient was independent with ADLs prior to admission. Pain is controlled with Flexeril and Percocet. Patient also considered was continued on his cortical steroids due to his rheumatoid arthritis. Patient also used continuous icing on bilateral knees when in bed. Patient dissipated and physical therapy during his stay and progressed well. Bilateral knees with midline surgical incision and dressing that appear healthy and intact. Noted moderate amount of ecchymosis on the medial aspect of his right thigh. Patient continues to have a moderate amount of edema to bilateral legs distal to surgical sites. Patient had exacerbation of his rheumatoid arthritis pain during his stay, but continued with the current dose of cortical steroids. Patient was treated with Toradol, which was very effective during his stay. Patient will be discharged with a prescription for Naprosyn. Patient also was treated with Percocet during her stay but will be discharged with a prescription for [place], as this is one of his home medications that he takes and he prefers. Was instructed to follow-up with his PCP within one week after discharge. Patient also will continue his follow-up with his orthopedic surgeon Discharge discussed with: patient Time spent discussing smoking cessation with patient: 3 to 10 minutes - Time Spent with Patient Total time spent providing and/or coordinating discharge services: Time spent: Less than 30 minutes - Discharge Medications Prescriptions: No Action Zolpidem [Ambien] 10 mg PO HS PRN PRN Reason: Sleep LORazepam [Ativan] 0.5 mg PO HS PRN PRN Reason: Anxiety Ibuprofen [Motrin] 600 mg PO DAILY PRN PRN Reason: Mild Pain Losartan/Hydrochlorothiazide [Hyzaar 100-25 Tablet] 1 each PO DAILY Aspirin [Lo-Dose Aspirin EC] 81 mg PO DAILY HYDROcodone/Acet 7.5/325 mg [[place] 7.5-325 mg] 1 tab PO Q6H PRN #15 tablet PRN Reason: Mild To Moderate Pain Cyclobenzaprine 10 mg PO TID PRN PRN Reason: MUSCLE SPASM Tamsulosin [Flomax] 0.4 mg PO DAILY Losartan 100 mg PO DAILY Rivaroxaban [Xarelto] 10 mg PO DAILY Percocet 5-325 mg Tablet 5 - 325 mg PO Q4HR PRN MDD 3 DAYS PRN Reason: Pain Zofran ODT 4 mg PO Q6HR PRN PRN Reason: Nausea Docusate [Colace] 10 mg PO BID Home Medications: Aspirin [Lo-Dose Aspirin EC] 81 mg PO DAILY 09/21/16 [History] HYDROcodone/Acet 7.5/325 mg [[place] 7.5-325 mg] 1 tab PO Q6H PRN #15 tablet 09/21/16 [Rx] Ibuprofen [Motrin] 600 mg PO DAILY PRN 09/21/16 [History] LORazepam [Ativan] 0.5 mg PO HS PRN 09/21/16 [History] Losartan/Hydrochlorothiazide [Hyzaar 100-25 Tablet] 1 each PO DAILY 09/21/16 [History] Zolpidem [Ambien] 10 mg PO HS PRN 09/21/16 [History] Cyclobenzaprine 10 mg PO TID PRN 10/19/18 [History] Docusate [Colace] 10 mg PO BID 10/19/18 [History] Losartan 100 mg PO DAILY 10/19/18 [History] Percocet 5-325 mg Tablet 5 - 325 mg PO Q4HR PRN MDD 3 DAYS 10/19/18 [History] Rivaroxaban [Xarelto] 10 mg PO DAILY 10/19/18 [History] Tamsulosin [Flomax] 0.4 mg PO DAILY 10/19/18 [History] Zofran ODT 4 mg PO Q6HR PRN 10/19/18 [History] Allergies/Adverse Reactions: Allergy/AdvReac Type Severity Reaction Status Date / Time Penicillins Allergy Anaphylaxis Verified 09/21/16 08:07 lisinopril AdvReac Anaphylaxis Verified 10/22/18 19:14 Date of admission: 10/19/18 17:01 Primary care physician: Guillermina Mazariegos CNP Consults: 10/19/18 18:26 Consult to Occupational Therapy [CONS] Routine Comment: Evaluate, develop and implement POC Reason for Consult: bilat total knee Does patient have active BEDREST order?: No Is patient medically & hemodynamically stable?: Yes Patient assessed for mobility or mobilized this visit?: Yes Consult to Physical Therapy [CONS] Routine Comment: Evaluate, develop and implement POC Reason for Consult: bilat total knee Does patient have active BEDREST order?: No Is patient medically & hemodynamically stable?: Yes Patient assessed for mobility or mobilized this visit?: Yes Consult to Recreational Therapy [CONS] Routine Comment: Evaluate, develop and implement POC Consult to A Auxiliary [CONS] Routine Reason for SW Consult: bilat total knee Discharging clinician: Xander Moya - Constitutional Vitals: Temp Pulse Resp BP Pulse Ox 98.0 F 96 16 130/75 97 10/27/18 07:45 10/27/18 07:45 10/27/18 07:45 10/27/18 07:45 10/27/18 07:45 General appearance: Present: cooperative, A&O X 3, morbidly obese, pleasant, answers questions appropriately - Head Head exam: Present: atraumatic, normocephalic - Eye Eye exam: Present: PERRL, conjuntiva pink, sclera anicteric Pupils: Present: PERRL - Neck Neck exam general surgery: Present: supple, trachea midline. Absent: lymphadenopathy - Respiratory Respiratory exam: Present: decreased breath sounds, CTAB. Absent: accessory muscle use, rales, rhonchi, wheezes - Cardiovascular Cardiovascular exam: Present: RRR, +S1, +S2. Absent: diastolic murmur, gallop, rubs, systolic murmur - GI/Abdominal GI/Abdominal exam: Present: normal bowel sounds, soft, no peritoneal signs. Absent: distended, tenderness - Extremities Exam Extremities exam: Present: warm, radial pulses palpable and symmetrical. Absent: calf tenderness, cyanotic, pedal edema Additional comments: Patient has midline incisions to bilateral knees from his total knee replacements. Bilateral knees with dressings in place that remained dry and intact. Moderate amount of healing ecchymosis noted to the medial aspect of right thigh. - Neurological Exam Neurological exam: Present: CN II-XII intact, oriented X3, no focal deficits. Absent: pronater drift, facial droop, speech deficit - Skin Skin exam: Present: dry, intact - Patient Status Disposition: Home Health Service Condition: Good Functional capacity at discharge: uses cane/walker Overall status at discharge: patient is progressing back to baseline - Discharge Instructions Follow Up With: Guillermina Mazariegos DIALYSIS REGISTERED NURSE [Primary Care Provider] - (Post-op f/u appt with Elgin Mota MD on Nov 09 at 11:00. ) - Diet and Activity Activity: ambulate only with your walker, as per physical therapy, increase activity as tolerated Diet: low fat, low cholesterol, low salt diet
--- NOTE | 2018-10-27 10:24 | Physician Discharge Referral ---
Home Health/Hosp Referral Info Transfer to: Home Health Provider in Charge Post Discharge: PCP - Diagnosis (1) Status post total bilateral knee replacement Priority: Primary Status: Acute (2) Rheumatoid arthritis Priority: Secondary Status: Chronic (3) Hypertension Priority: Secondary Status: Chronic - Respiratory Orders Smoking Cessation: Smoking cessation has been advised. For more information, call the [place] Tobacco Quit Line at 0-001-NNBQ-NOW. - Diet/Nutrition Diet/Nutrition Orders: No Added Salt (RODRIGO) - Activity Activity Orders: Up ad lilian, Walker - Services Needed Following services are medically necessary services: Nursing, Physical Therapy - Transfer Medications Home Medications: Aspirin [Lo-Dose Aspirin EC] 81 mg PO DAILY 09/21/16 [History] HYDROcodone/Acet 7.5/325 mg [[place] 7.5-325 mg] 1 tab PO Q6H PRN #15 tablet 09/21/16 [Rx] Ibuprofen [Motrin] 600 mg PO DAILY PRN 09/21/16 [History] LORazepam [Ativan] 0.5 mg PO HS PRN 09/21/16 [History] Losartan/Hydrochlorothiazide [Hyzaar 100-25 Tablet] 1 each PO DAILY 09/21/16 [History] Zolpidem [Ambien] 10 mg PO HS PRN 09/21/16 [History] Cyclobenzaprine 10 mg PO TID PRN 10/19/18 [History] Docusate [Colace] 10 mg PO BID 10/19/18 [History] Losartan 100 mg PO DAILY 10/19/18 [History] Percocet 5-325 mg Tablet 5 - 325 mg PO Q4HR PRN MDD 3 DAYS 10/19/18 [History] Rivaroxaban [Xarelto] 10 mg PO DAILY 10/19/18 [History] Tamsulosin [Flomax] 0.4 mg PO DAILY 10/19/18 [History] Zofran ODT 4 mg PO Q6HR PRN 10/19/18 [History] Allergies/Adverse Reactions: Allergy/AdvReac Type Severity Reaction Status Date / Time Penicillins Allergy Anaphylaxis Verified 09/21/16 08:07 lisinopril AdvReac Anaphylaxis Verified 10/22/18 19:14 Certification: Further, I certify that my clinical findings support that this patient is homebound (i.e. absences from home require considerable and taxing effort and are for medical reasons or orthodox services or infrequently or short duration when for other reasons) because: Homebound Reason: Leaving home requires considerable and taxing effort due to condition Attestation: My signature below is to certify that this patient is under my care and that I, or nurse practitioner, or a physician's fire control assistant working with me, has a [id number] encounter with this patient.
== END 2018-10-27 15:17 | disposition home health service (06) | DRG 560 ==
LOC: INPGRE 17:01